=== PATIENT | male | born 1965 | race Caucasian/White ===

== ENCOUNTER 2018-06-12 11:39 | Emergency (ER) | payer BC ==
[~2018-06-12] VITALS: Ht 182.9 cm; Wt 88.0 kg
[2018-06-12 11:47] VITALS: BP 131/85
[2018-06-12 12:19] LABS: Urine Bacteria FEW /hpf (None Seen); Urine Blood Negative /uL (Negative); Urine Specific Gravity 1.041 (1.001-1.035); Urine WBC <1 /hpf (0 - 3)
[2018-06-12 13:34] LABS: Basophils # (auto) 0.1 uL; Basophils % (auto) 1.3 % (0.0-2.0); Eosinophils # (auto) 0.2 uL; Eosinophils % (auto) 2.8 % (0.0-7.0); Hematocrit 43.3 % (41.0-53.0); Hemoglobin 14.6 g/dL (13.5-17.5); Lymphocytes # (auto) 2.5 uL; Lymphocytes % (auto) 35.4 % (10.0-50.0); Mean Corpuscular Hemoglobin 30.2 pg (28.0-32.0); Mean Corpuscular Hgb Conc. 33.8 g/dL (32.0-36.0); Mean Corpuscular Volume 89.5 fL (80.0-100.0); Monocytes # (auto) 0.5 uL; Monocytes % (auto) 7.4 % (0.0-12.0); Neutrophils # (auto) 3.8 uL; Neutrophils % (auto) 53.1 % (37.0-80.0); Nucleated Red Blood Cells % 0.2 %; Platelet Count (auto) 290 10^3/uL (140-450); Red Blood Cells 4.84 10^6/uL (4.5-5.90); Red Cell Distribution Width 12.4 % (11.8-14.3); White Blood Cell 7.2 10^3/uL (4.4-10.8)
[2018-06-12 13:50] LABS: Anion Gap 6 (5-15); Blood Urea Nitrogen 10 mg/dL (7-18); Calcium 8.7 mg/dL (8.5-10.1); Carbon Dioxide 27 mmol/L (21-32); Chloride 103 mmol/L (98-107); Glucose 245 mg/dL (74-106); Potassium 4.2 mmol/L (3.5-5.1); Sodium 136 mmol/L (136-145)
[2018-06-12 13:55] LABS: Alanine Aminotransferase 32 U/L (16-61); Alkaline Phosphatase 105 U/L (45-117); Aspartate Aminotransferase 13 U/L (15-37); BUN/Creatinine Ratio 12.5; Bilirubin, Total 0.4 mg/dL (0.2-1.0); GFR African American 131 mL/min; GFR Non-African American 108 mL/min; Total Protein 8.1 g/dL (6.4-8.2)
== END 2018-06-12 17:33 | disposition home or self-care (01) ==
LOC: ER 11:44
DX: N39.0 Urinary tract infection, site not specified (principal); K57.30 Diverticulosis of large intestine without perforation or abscess without bleeding; E11.9 Type 2 diabetes mellitus without complications
CPT/HCPCS: 36415; 74176; 80053; 81001; 84484; 85025; 93005

== ENCOUNTER 2018-10-01 18:45 | Emergency (ER) | payer BC, OTHER ==
[~2018-10-01] VITALS: Ht 182.9 cm; Wt 89.4 kg
[2018-10-01 19:04] VITALS: BP 132/89
== END 2018-10-01 21:57 | disposition home or self-care (01) ==
LOC: ER 18:47
DX: S53.402A Unspecified sprain of left elbow, initial encounter (principal); E11.9 Type 2 diabetes mellitus without complications; Z90.49 Acquired absence of other specified parts of digestive tract; X50.1XXA Overexertion from prolonged static or awkward postures, initial encounter; Y93.89 Activity, other specified; Y99.0 Civilian activity done for income or pay; Y92.89 Other specified places as the place of occurrence of the external cause
CPT/HCPCS: 73080; 73090; 73110

== ENCOUNTER 2019-11-30 07:57 | Emergency (ER) | payer BC, OTHER ==
[~2019-11-30] VITALS: Ht 182.9 cm; Wt 84.4 kg
[2019-11-30 08:47] LABS: Basophils # (auto) 0.1 10 ^3/uL (0-0.2); Basophils % (auto) 1.2 % (0.0-2.0); Eosinophils # (auto) 0.2 10 ^3/uL (0-0.8); Eosinophils % (auto) 3.6 % (0.0-7.0); Hematocrit 43.3 % (41.0-53.0); Mean Corpuscular Hemoglobin 30.5 pg (28.0-32.0); Mean Corpuscular Hgb Conc. 34.6 g/dL (32.0-36.0); Mean Corpuscular Volume 88.2 fL (80.0-100.0); Monocytes # (auto) 0.5 10 ^3/uL (0-1.3); Monocytes % (auto) 8.4 % (0.0-12.0); Neutrophils # (auto) 2.8 10 ^3/uL (1.6-8.6); Neutrophils % (auto) 50.8 % (37.0-80.0); Nucleated Red Blood Cells % 0.1 %; Platelet Count (auto) 257 10^3/uL (140-450); Red Blood Cells 4.91 10^6/uL (4.5-5.90); Red Cell Distribution Width 12.3 % (11.8-14.3); White Blood Cell 5.6 10^3/uL (4.4-10.8)
[2019-11-30 09:03] LABS: Albumin 4.1 g/dL (3.4-5.0); Calcium 9.2 mg/dL (8.5-10.1); Potassium 3.8 mmol/L (3.5-5.1)
[2019-11-30 09:06] LABS: BUN/Creatinine Ratio 14.3; Bilirubin, Total 0.7 mg/dL (0.2-1.0); Total Protein 8.1 g/dL (6.4-8.2)
[2019-11-30] MEDS ORDERED: PROMETHAZINE HCL 25 MG/ML 1ML IV PRN (09:15)
[2019-11-30] MEDS ORDERED: MORPHINE SULFATE 4 MG/ML SYR/VIAL IV ONE (09:15)
[2019-11-30 09:16] LABS: Urine Bacteria NONE SEEN /hpf (None Seen); Urine Blood Negative /uL (Negative); Urine Hyaline Cast FEW /lpf (0 - 2); Urine Mucus FEW (None Seen); Urine Specific Gravity 1.035 (1.001-1.035); Urine WBC 1 /hpf (0 - 3)
[2019-11-30 10:08] LABS: Magnesium 1.7 mg/dL (1.6-2.6)
[2019-11-30 12:19] VITALS: BP 103/59
== END 2019-11-30 12:32 | disposition home or self-care (01) ==
LOC: ER 07:57
DX: K52.89 Other specified noninfective gastroenteritis and colitis (principal); E11.9 Type 2 diabetes mellitus without complications; Z90.49 Acquired absence of other specified parts of digestive tract
CPT/HCPCS: 36415; 71046; 74176; 80053; 81001; 83690; 83735; 85025; 93005; 96374; 96375; 99285; J2270; J2550

== ENCOUNTER 2021-03-28 08:08 | Emergency (ER) | payer BC ==
[~2021-03-28] VITALS: Ht 182.9 cm; Wt 84.4 kg
[2021-03-28 08:27] VITALS: BP 134/89
== END 2021-03-28 09:19 | disposition home or self-care (01) ==
LOC: ER 08:08
DX: L02.31 Cutaneous abscess of buttock (principal); E11.9 Type 2 diabetes mellitus without complications; Z90.49 Acquired absence of other specified parts of digestive tract
CPT/HCPCS: 10060

== ENCOUNTER 2024-01-15 19:43 | Emergency (ER) | payer BC ==
[~2024-01-15] VITALS: Ht 182.9 cm; Wt 79.4 kg
[2024-01-15 21:11] LABS: Urine Bacteria None Seen /hpf (None Seen); Urine WBC None Seen /hpf (0 - 3)
[2024-01-15 21:49] LABS: Urine Blood 1+ /uL (Negative); Urine Clarity Clear (Clear); Urine Color Light-Yellow (Yellow); Urine Protein, UAD 1+ (Negative); Urine Specific Gravity 1.039 (1.001-1.035); Urine Urobilinogen Normal (Negative); Urine pH 5.5 (5.0-9.0)
[2024-01-15 21:54] LABS: Basophils # (auto) 0.1 10 ^3/uL (0-0.2); Basophils % (auto) 0.7 % (0.0-2.0); Eosinophils # (auto) 0.1 10 ^3/uL (0-0.8); Eosinophils % (auto) 1.7 % (0.0-7.0); Hematocrit 33.3 % (41.0-53.0); Hemoglobin 11.5 g/dL (13.5-17.5); Lymphocytes # (auto) 1.8 10 ^3/uL (0.4-5.4); Lymphocytes % (auto) 21.4 % (10.0-50.0); Mean Corpuscular Hemoglobin 30.3 pg (28.0-32.0); Mean Corpuscular Hgb Conc. 34.5 g/dL (32.0-36.0); Mean Corpuscular Volume 87.8 fL (80.0-100.0); Monocytes # (auto) 0.9 10 ^3/uL (0-1.3); Monocytes % (auto) 10.4 % (0.0-12.0); Neutrophils # (auto) 5.6 10 ^3/uL (1.6-8.6); Neutrophils % (auto) 65.8 % (37.0-80.0); Red Cell Distribution Width 12.6 % (11.8-14.3); White Blood Cell 8.6 10^3/uL (4.4-10.8)
[2024-01-15 22:17] LABS: Alanine Aminotransferase 18 U/L (7-40); Albumin 4.1 g/dL (3.2-4.8); Alkaline Phosphatase 147 U/L (46-116); Anion Gap 6 (5-15); Aspartate Aminotransferase 13 U/L (13-40); BUN/Creatinine Ratio 14.6 (10.0-20.0); Bilirubin, Total 0.7 mg/dL (0.2-1.0); Blood Urea Nitrogen 18 mg/dL (9-23); Carbon Dioxide 27 mmol/L (20-30); Chloride 100 mmol/L (98-107); Potassium 4.2 mmol/L (3.5-5.1); Sodium 133 mmol/L (136-145); Total Protein 7.6 g/dL (5.7-8.2)
[2024-01-15 22:20] LABS: Glucose 401 mg/dL (74-106)
[2024-01-16] MEDS ORDERED: IBUP-1455 PO (00:59)
[2024-01-16] MEDS ORDERED: CEPH500C PO (00:59)
[2024-01-16] MEDS: KETOROLAC TROMETH 60MG/2ML VIAL IM ONE (01:06)
[2024-01-16 01:11] VITALS: BP 136/81; PULSE 91; RESP 18; TEMP 98; O2SAT 98
== END 2024-01-16 00:59 | disposition home or self-care (01) ==
LOC: ER 19:43
DX: E11.621 Type 2 diabetes mellitus with foot ulcer (principal); R53.1 Weakness; N20.0 Calculus of kidney; E11.65 Type 2 diabetes mellitus with hyperglycemia; R07.89 Other chest pain; Z90.49 Acquired absence of other specified parts of digestive tract
CPT/HCPCS: 36415; 71045; 74176; 80053; 81001; 85025; 96372; 99285; J1885

== ENCOUNTER 2024-01-22 12:56 | Emergency (ER) | payer BC ==
[~2024-01-22] VITALS: Ht 182.9 cm; Wt 83.3 kg
[~2024-01-22 12:56] MED LIST: CEPH500C PO; IBUP-1455 PO
[2024-01-22 13:39] LABS: Basophils # (auto) 0.1 10 ^3/uL (0-0.2); Basophils % (auto) 0.7 % (0.0-2.0); Eosinophils # (auto) 0.1 10 ^3/uL (0-0.8); Eosinophils % (auto) 0.7 % (0.0-7.0); Hemoglobin 11.4 g/dL (13.5-17.5); Lymphocytes # (auto) 1.3 10 ^3/uL (0.4-5.4); Lymphocytes % (auto) 12.9 % (10.0-50.0); Mean Corpuscular Hemoglobin 29.5 pg (28.0-32.0); Mean Corpuscular Hgb Conc. 33.5 g/dL (32.0-36.0); Monocytes # (auto) 0.8 10 ^3/uL (0-1.3); Monocytes % (auto) 7.3 % (0.0-12.0); Neutrophils # (auto) 8.1 10 ^3/uL (1.6-8.6); Neutrophils % (auto) 78.4 % (37.0-80.0); Nucleated Red Blood Cells % 0.1 %; Red Blood Cells 3.86 10^6/uL (4.5-5.90); Red Cell Distribution Width 12.3 % (11.8-14.3); White Blood Cell 10.4 10^3/uL (4.4-10.8)
[2024-01-22 13:58] LABS: Alanine Aminotransferase 26 U/L (7-40); Alkaline Phosphatase 132 U/L (46-116); Anion Gap 4 (5-15); BUN/Creatinine Ratio 22.9 (10.0-20.0); Blood Urea Nitrogen 24 mg/dL (9-23); Calcium 9.6 mg/dL (8.7-10.4); Carbon Dioxide 26 mmol/L (20-30); Chloride 105 mmol/L (98-107); Glucose 319 mg/dL (74-106); Magnesium 1.7 mg/dL (1.6-2.6); Potassium 4.3 mmol/L (3.5-5.1); Sodium 135 mmol/L (136-145)
[2024-01-22 13:59] LABS: Albumin 4.1 g/dL (3.2-4.8); Aspartate Aminotransferase 17 U/L (13-40); Bilirubin, Total 0.3 mg/dL (0.2-1.0)
[2024-01-22 14:11] LABS: Partial Thromboplastin Time 27.5 SEC (24.5-34.5); Prothrombin Time 10.6 sec (9.3-11.8)
[2024-01-22 16:08] VITALS: BP 109/64; PULSE 89; RESP 18; O2SAT 100
[2024-01-22] MEDS: IOHEXOL 350 MG/ML 100ML IJ ONE (20:00)
== END 2024-01-22 20:05 | disposition home or self-care (01) ==
LOC: ER 12:56
DX: G45.3 Amaurosis fugax (principal); E11.42 Type 2 diabetes mellitus with diabetic polyneuropathy; Z98.890 Other specified postprocedural states; Z79.899 Other long term (current) drug therapy
CPT/HCPCS: 36415; 70450; 70496; 80053; 83735; 83880; 84484; 85025; 85610; 85730; 93005; 99285; Q9967